=== PATIENT | male | born 2000 | race African-American/Black ===

== ENCOUNTER 2020-09-28 14:59 | Emergency (ER) | payer MEDICAID, SELFPAY ==
[2020-09-28] MEDS ORDERED: Albuterol 200 PUFF (6.7GM INHALER) ONE (15:25)
--- NOTE | 2020-09-28 15:28 | RAD ---
XR Chest Pa Lat STANDARD History: Cough Comparison: Radiograph 2012 Findings: Lungs are clear. No pneumothorax or effusion. Cardiac silhouette and mediastinal contours a re within normal limits. Impression: No acute intrathoracic abnormality.
[2020-09-28] MEDS ORDERED: Albuterol 200 PUFF (6.7GM INHALER) INH PRN (15:41)
[2020-09-28] MEDS ORDERED: Albuterol 200 PUFF (6.7GM INHALER) INH SCH ×5 (15:42→15:58)
== END 2020-09-28 15:45 | disposition home or self-care (01) ==
LOC: ERS 14:59
DX: J06.9 Acute upper respiratory infection, unspecified (principal); J45.909 Unspecified asthma, uncomplicated; F17.210 Nicotine dependence, cigarettes, uncomplicated
CPT/HCPCS: 71046

== ENCOUNTER 2020-11-28 15:31 | Emergency (ER) | payer OTHER, SELFPAY ==
[2020-11-28] MEDS ORDERED: Ibuprofen 200 MG TAB ONE (16:04)
== END 2020-11-28 17:08 ==
LOC: ERS 15:31 → EEVIPCON 15:31 → ERS 17:08
DX: S62.337A Displaced fracture of neck of fifth metacarpal bone, left hand, initial encounter for closed fracture (principal); I10 Essential (primary) hypertension; J45.909 Unspecified asthma, uncomplicated; F17.210 Nicotine dependence, cigarettes, uncomplicated; W26.9XXA Contact with unspecified sharp object(s), initial encounter
CPT/HCPCS: 29125

== ENCOUNTER 2021-04-27 14:07 | Emergency (ER) | payer SELFPAY ==
[2021-04-27 23:38] LABS: SARS-CoV-2 PCR by NAA Not Detected (NotDetected)
== END 2021-04-27 15:06 | disposition home or self-care (01) ==
LOC: ERS 14:07
DX: J06.9 Acute upper respiratory infection, unspecified (principal); Z20.822 Contact with and (suspected) exposure to COVID-19; I10 Essential (primary) hypertension; J45.909 Unspecified asthma, uncomplicated; F17.210 Nicotine dependence, cigarettes, uncomplicated
CPT/HCPCS: 71045; U0003; U0005

== ENCOUNTER 2021-08-13 06:22 | Emergency (ER) | payer OTHER ==
[2021-08-13] MEDS ORDERED: Acetaminophen 500 MG TAB ONE (06:40)
== END 2021-08-13 06:38 ==
LOC: ERS 06:22
DX: Z02.89 Encounter for other administrative examinations (principal)
CPT/HCPCS: 99283